=== PATIENT | male | born 1990 | race American Indian/Alaskan Native ===

== ENCOUNTER 2016-06-22 14:43 | Emergency (ER) | payer OTHER ==
[2016-06-22] MEDS ORDERED: MOTRIN PO ONE (20:31)
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
--- NOTE | 2016-06-22 20:59 | XRay Report ---
FINAL REPORT EXAM: XR FINGER(S) 2 LT HISTORY: / left 4th finger dislocation or subluxation PIP TECHNIQUE: AP view of the left hand and 2 additional views of the left 4th finger PRIORS: None. FINDINGS: The 4th PIP J is normally aligned. The bones of the hand are normally aligned and mineralized. The joint spaces are well-preserved. There is no evidence of acute fracture. There is mild soft tissue swelling centered at the 4th PIP J. IMPRESSION: No evidence of acute fracture or subluxation. Mild soft tissue swelling centered at the 4th PIP J
[2016-06-22 22:06] VITALS: BP 138/80
== END 2016-06-22 22:12 | disposition home or self-care (01) ==
LOC: ED 14:43
DX: S63.611A Unspecified sprain of left index finger, initial encounter (principal); M65.322 Trigger finger, left index finger; V49.49XA Driver injured in collision with other motor vehicles in traffic accident, initial encounter; Y93.9 Activity, unspecified; Y92.9 Unspecified place or not applicable; Y99.9 Unspecified external cause status

== ENCOUNTER 2018-01-21 20:49 | Emergency (ER) | payer OTHER ==
[2018-01-22 01:26] VITALS: BP 120/78
[2018-01-22] MEDS ORDERED: MOTRIN PO ONE (03:03)
--- NOTE | 2018-01-22 04:03 | Emergency Department Report ---
ED Headache HPI - General Chief Complaint: Headache Stated Complaint: MIGRAINE Time Seen by Provider: 01/22/18 02:53 - History of Present Illness Initial Comments: When he 7-year-old -[place] male comes in complaining of headache and red eyes 3 days. Patient last took Excedrin 2 days ago. Patient reports that he has decrease in appetite decrease and drinking hard time sleeping. 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 He complains of his eyes being red try and stinging. Patient denies any change of vision or blurred vision. He reports that his headache is located behind his eyes. Patient denies any photophobia and no nausea no vomiting no trauma to the head. Timing/Duration: other (3 days) Quality: throbbing Head Injury Location: global Recent Head Trauma: no recent headache/trauma Modifying Factors: worse with: exposure to light Associated Symptoms: denies symptoms Allergies/Adverse Reactions: Allergies No Known Allergies Allergy (Unverified 06/22/16 14:50) Home Medications: Ambulatory Orders Cyclobenzaprine [Flexeril] 10 mg PO TID PRN #15 tablet 06/22/16 Carboxymethylcellulose Sodium [Refresh Liquigel] 1 drop OU Q8H #1 bottle Ibuprofen [Motrin 600 MG tab] 600 mg PO Q8H PRN #20 tablet 01/22/18 ED Review of Systems ROS: Stated complaint: MIGRAINE Other details as noted in HPI ED Past Medical Hx - Past Medical History Previous Medical History?: No - Surgical History Past Surgical History?: No - Social History Smoking Status: Never Smoker Substance Use Type: Alcohol - Medications Home Medications: Home Medications Medication Instructions Recorded Confirmed Last Taken Type Cyclobenzaprine [Flexeril] 10 mg PO TID PRN #15 tablet 06/22/16 Unknown Rx Carboxymethylcellulose Sodium 1 drop OU Q8H #1 bottle 01/22/18 Unknown Rx [Refresh Liquigel] Ibuprofen [Motrin 600 MG tab] 600 mg PO Q8H PRN #20 tablet 01/22/18 Unknown Rx ED Physical Exam - General Limitations: No Limitations ED Course Vital Signs 01/21/18 01/22/18 01/22/18 21:03 01:26 03:27 Temperature 98.5 F Pulse Rate 72 74 Respiratory 16 18 18 Rate Blood Pressure 124/76 Blood Pressure 120/78 [Right] O2 Sat by Pulse 99 99 Oximetry ED Medical Decision Making - Medical Decision Making Patient has been evaluated by this provider fast track. Attempt to use Tonometery without much success. Acuity was within normal limits Headache resolve with taking ibuprofen. Recommend eye lubrication such as refresh liquid gel for eyes. Referral to ophthalmology for follow-up dry eyes. Critical care attestation.: If time is entered above; I have spent that time in minutes in the direct care of this critically ill patient, excluding procedure time. ED Disposition Clinical Impression: Dry eyes, bilateral Headache Qualifiers: Headache type: unspecified Headache chronicity pattern: acute headache Intractability: intractable Qualified Code(s): R51 - Headache Disposition: DC-01 TO HOME OR SELFCARE Is pt being admited?: No Does the pt Need Aspirin: No Condition: Stable Instructions: Eye Lubricant (Into the eye), Acute Headache (ED) Additional Instructions: Use eye lubrication as prescribed and as needed. Take pain medication for headache as needed. Follow-up with hitting coach if eye symptoms continue or get worse. Prescriptions: Carboxymethylcellulose Sodium [Refresh Liquigel] 1 drop OU Q8H #1 bottle Ibuprofen [Motrin 600 MG tab] 600 mg PO Q8H PRN #20 tablet PRN Reason: Pain Referrals: PRIMARY CARE, [Primary Care Provider] - 3-5 Days LAVERNE ALLRED MD [Staff Physician] - 3-5 Days Forms: Work/School Release Form(ED)
== END 2018-01-22 04:53 | disposition home or self-care (01) ==
LOC: ED 20:49
DX: R51 Headache (principal); H04.123 Dry eye syndrome of bilateral lacrimal glands; R63.0 Anorexia; Z68.23 Body mass index [BMI] 23.0-23.9, adult